=== PATIENT | male | born 1960 ===

== ENCOUNTER 2019-10-06 07:00 | Inpatient (IN) | payer OTHER ==
[~2019-10-06] VITALS: Ht 172.7 cm; Wt 85.7 kg
[2019-10-07] VITALS (14 sets, daily range): BP systolic 108–134; BP diastolic 62–80
[2019-10-07] MEDS ORDERED: ceFAZolin sod 2 GM in D5W 110 ML IVPB ONE (07:00)
--- NOTE | 2019-10-07 07:10 | NUR ---
IV STARTED BY ANITA ABRAMSOPS RN. NO S/S OF INFILTRATION.
[2019-10-07] MEDS ORDERED: AMLODIPINE BESYL5 MG ORAL (07:16)
[2019-10-07] MEDS ORDERED: LISINOPRIL20 MG ORAL (07:16)
--- NOTE | 2019-10-07 07:34 | Pre-Procedure Note/Attestation ---
Pre-Procedure Note/Attestation Complete Prior to Procedure Planned Procedure: not applicable Procedure Narrative: Bilateral Lumbar 45 and Lumbar 5S1 hemilaminotomy foraminotomy decompression and microdiscectomy Indications for Procedure Pre-Operative Diagnosis: L45 and L5S1 herniation Attestation I attest that I discussed the nature of the procedure; its benefits; risks and complications; and alternatives (and the risks and benefits of such alternatives ), prior to the procedure, with the patient (or the patient's legal retail service representative). I attest that, if there was a reasonable possibility of needing a blood transfusion, the patient (or the patient's legal retail service representative) was given the [place] [employer] standardized written summary, pursuant to the [place] Blood Safety Act ([place] Health and Safety Code # 1645, as amended). I attest that I re-evaluated the patient just prior to the surgery and that there has been no change in the patient's H&P, except as documented below: Tee Peterson MD Oct 07, 2019 07:34
--- NOTE | 2019-10-07 07:35 | Brief Operative Note ---
Immediate Post Operative Note Operative Note Chief Complaint: back pain and radiculopathy Pre-op Diagnosis: L45 and L5S1 herniation Procedure: Bilateral Lumbar 45 and Lumbar 5S1 hemilaminotomy foraminotomy decompression and microdiscectomy Post-op Diagnosis: same as pre-op Findings: consistent w/pre-op dx studies Surgeon: Kristen Plastic Jig And Fixture Builder: Deena Anesthesiologist: Sirisha Anesthesia: general Specimen: none Complications: none Condition: stable Fluids: IVF Estimated Blood Loss: minimal Drains: none Implant(s) used?: No Tee Peterson MD Oct 07, 2019 07:34
[2019-10-07] MEDS ORDERED: HYDROcodone/Acetamin 7.5/325 tab ORAL PRN ×3 (07:45→09:45)
[2019-10-07] MEDS ORDERED: Chloraseptic Spray 20mL Bottle ORAL PRN (07:45)
[2019-10-07] MEDS ORDERED: Metoclopramide 10mg/2ml Inj IVP PRN ×2 (07:45→09:45)
[2019-10-07] MEDS ORDERED: Milk of Magnesia 30ml Ud ORAL PRN (07:45)
[2019-10-07] MEDS ORDERED: HYDROmorphone 1mg/ml Carpuject IVP PRN (07:45)
[2019-10-07] MEDS ORDERED: Naloxone 0.4mg/ml Inj IVP PRN (07:45)
[2019-10-07] MEDS ORDERED: Morphine Sulfate 4mg/ml Inj (IV USE ONLY) IV PRN (07:45)
[2019-10-07] MEDS ORDERED: Morphine Sulfate 2mg/ml Inj(IV/IM USE ONLY) IV PRN (07:45)
[2019-10-07] MEDS ORDERED: HYDROcodone/Acetamin 5/325 tab ORAL PRN ×2 (07:45→09:45)
[2019-10-07] MEDS ORDERED: Bacitracin 50000 Units Vial ONE (09:35)
[2019-10-07] MEDS ORDERED: Ropivacaine 5mg/ml Vial 30ml INJ ONE ×2 (09:35→12:01)
[2019-10-07] MEDS ORDERED: Thrombin 5000 units TOPIC ONE (09:35)
[2019-10-07] MEDS ORDERED: Gelfoam Size TOPIC ONE (09:35)
[2019-10-07] MEDS ORDERED: Hydromorphone 0.5mg/0.5ml inj IVP PRN (09:45)
[2019-10-07] MEDS ORDERED: Meperidine 50mg/ml Inj(FOR RIGORS ONLY) IVP PRN (09:45)
[2019-10-07] MEDS ORDERED: oxyCODONE HCL/Acetaminophen 5/325mg ORAL PRN (09:45)
[2019-10-07] MEDS ORDERED: fentaNYL 100 mcg/2 mL IV PRN (09:45)
[2019-10-07] MEDS ORDERED: Ketorolac 30mg Inj IV PRN ×2 (09:45)
[2019-10-07] MEDS ORDERED: LR 1000ml 1,000 ML IVLG SCH (09:45)
[2019-10-07] MEDS ORDERED: Midazolam 2mg/2ml Inj IVP PRN (09:45)
[2019-10-07] MEDS ORDERED: LORazepam Inj 2mg/ml 1ml IV PRN (09:45)
[2019-10-07] MEDS ORDERED: DiphenhydrAMINE 50mg/ml Inj IVP PRN (09:45)
[2019-10-07] MEDS ORDERED: Acetaminophen (Non formulary) 100 ML IV ONE (09:45)
[2019-10-07] MEDS ORDERED: Atropine Sulfate 0.4mg/ml inj IVP PRN (09:45)
[2019-10-07] MEDS ORDERED: Labetalol 5mg/ml 20ml vial IV PRN (09:45)
--- NOTE | 2019-10-07 09:47 | Anethesia Preoperative Eval ---
Anesthesia Pre-op PMH/ROS General Date of Evaluation: Oct 07, 2019 Time of Evaluation: 09:46 Anesthesiologist: Sirisha ASA Score: ASA 3 Mallampati Score Class I : Soft palate, uvula, fauces, pillars visible Class II: Soft palate, uvula, fauces visible Class III: Soft palate, base of uvula visible Class IV: Only hard plate visible Mallampati Classification: Class II Surgeon: Kristen Diagnosis: Back Pain Surgical Procedure: L4-5,L5-S1 Microdiscectomy, Hemilaminotomy Anesthesia History: none Family History: no anesthesia problems Allergies: Coded Allergies: No Known Allergies (Unverified , 10/04/19) Medications: see eMAR Patient NPO?: Yes NPO Date: Oct 06, 2019 NPO Time: 2100 Past Medical History Cardiovascular: Reports: HTN, other - HL Other: obesity - BMI 31 Anesthesia Pre-op Phys. Exam Physician Exam Last Vital Signs Date Time Temp Pulse Resp B/P (MAP) Pulse Ox O2 Delivery O2 Flow Rate FiO2 10/07/19 07:17 97.0 60 20 134/80 (98) 100 10/07/19 07:07 Room Air Constitutional: NAD Neurologic: CN 2-12 intact Cardiovascular: RRR Respiratory: CTA Gastrointestinal: S/NT/ND Airway Exam Mallampati Score: Class II MO: full ROM: full Teeth: missing Dentures: upper, lower Anesthesia Pre-op A/P Risk Assessment & Plan Assessment: ASA 3 Plan: GA, SED, GlideScope Go Status Change Before Surgery: No Pre-Antibiotics Dru Grams Ancef IV Given Within 1 Hr of Incision: Yes Time Given: 10:11 Alfa Grimm MD Oct 07, 2019 09:47
[2019-10-07] MEDS ORDERED: Lidocaine 1% MPF 10mg/ml 5ml ONE (09:49)
[2019-10-07] MEDS ORDERED: Lidocaine 1% Plain 30 ml INJ ONE (09:49)
[2019-10-07] MEDS ORDERED: fentaNYL 100 mcg/2 mL IV ONE (09:50)
[2019-10-07] MEDS ORDERED: Vancomycin 1gm vial IVPB ONE ×2 (09:57→11:53)
[2019-10-07] MEDS ORDERED: NS Irrig 1000ml ONE (10:00)
[2019-10-07] MEDS ORDERED: Propofol 1,000mg/ 100ml btl IV ONE (10:00)
[2019-10-07] MEDS ORDERED: Sterile Water Irrig 1000ml IRRIG ONE (10:00)
[2019-10-07] MEDS ORDERED: Rocuronium Bromide 50mg/5ml Inj IV ONE (10:00)
--- NOTE | 2019-10-07 10:12 | NUR ---
CASE MANAGEMENT:REVIEW 59 YR OLD MALE HERE FOR ELECTIVE SURGERY SI: BACK PAIN AND RADICULOPATHY 97.0 60 20 134/80 100% ON RA IS: TO SURGERY: BILATERAL LUMBAR HEMILAMINOTOMY...... : CURRENTLY IN SURGERY INTERQUAL CRITERIA MET
--- NOTE | 2019-10-07 10:55 | Immediate Post-Op Evaluation ---
Immediate Post-Op Evalulation Immediate Post-Op Evalulation Procedure: L4-5,L5-S1 Microdiscectomy, Hemilaminotomy Date of Evaluation: Oct 07, 2019 Time of Evaluation: 12:49 IV Fluids: 1000 LR Blood Products: 0 Estimated Blood Loss: 75 Urinary Output: 200 Blood Pressure Systolic: 121 Blood Pressure Diastolic: 70 Pulse Rate: 67 Respiratory Rate: 18 O2 Sat by Pulse Oximetry: 100 Temperature (Fahrenheit): 98.4 Pain Score (1-10): 2 Nausea: No Vomiting: No Complications 0 Patient Status: awake, reacts, patent, extubated, none Hydration Status: adequate Dru Grams Acef IV Given Within 1 Hr of Incision: Yes Time Given: 10:11 Alfa Grimm MD Oct 07, 2019 10:55
[2019-10-07] MEDS ORDERED: Neostigmine 1mg/ml 10ml Inj ONE (11:33)
[2019-10-07] MEDS ORDERED: Glycopyrrolate 0.2mg/ml 1ml Vial ONE (11:33)
[2019-10-07] MEDS ORDERED: ePHEDrine 50mg/ml Inj ONE (12:22)
--- NOTE | 2019-10-07 15:46 | Diagnostic Imaging Report ---
INDICATION: Pain, intraoperative TECHNIQUE: Intraoperative imaging Fluoroscopy time: 4.9 seconds Total dose: 0.40497 mGym2 Total number of images: 6 one COMPARISON: None FINDINGS: Single intraoperative image demonstrates a surgical tool projected at the level of what is presumably the posterior L5-S1 disc IMPRESSION: Intraoperative imaging, as described
--- NOTE | 2019-10-07 15:46 | Diagnostic Imaging Report ---
INDICATION: Pain, intraoperative TECHNIQUE: Intraoperative imaging Fluoroscopy time: 4.9 seconds Total dose: 0.63996 mGym2 Total number of images: 6 one COMPARISON: None FINDINGS: Single intraoperative image demonstrates a surgical tool projected at the level of what is presumably the posterior L5-S1 disc IMPRESSION: Intraoperative imaging, as described
--- NOTE | 2019-10-07 17:00 | NUR ---
NURSE NOTES: Received report from Chente WU. pt a/a/o x4 laying in bed with no signs of distress or other issues at this time. surgical dressing dry and intact. ice pack in place. Naylor draining to gravity. IV on the left hand gauge#20. SCDS in place. call light within reach, bed in lowest position. side rales up x2. family at bedside. RN will review orders and will carry them as indicated. will f/u as needed.
[2019-10-07] MEDS: NS w/KCl 20mEq 1000ml 1,000 ML IV SCH (17:11)
[2019-10-07] MEDS: Dexamethasone 4mg/ml vial IVP SCH (17:11)
[2019-10-07] MEDS: ceFAZolin sod 1 GM in D5W 55 ML IV SCH (17:11)
[2019-10-07] MEDS: Docusate 100mg cap ORAL SCH (17:12)
--- NOTE | 2019-10-07 17:18 | General Progress Note ---
Assessment/Plan Assessment/Plan: L45 and L5S1 herniation Bilateral Lumbar 45 and Lumbar 5S1 hemilaminotomy foraminotomy decompression and microdiscectomy lumbar disc disease PLAN 1. incentive spirometry 2. SCD 3. PT evaluation and therapy 4. Hydration 5. Pain management 6. discharge once stable with outpatient follow up Subjective Allergies: Coded Allergies: No Known Allergies (Unverified , 10/04/19) Subjective asked to follow up post op Objective Last 24 Hour Vital Signs Date Time Temp Pulse Resp B/P (MAP) Pulse Ox O2 Delivery O2 Flow Rate FiO2 10/07/19 16:00 98.4 87 18 120/67 (84) 98 10/07/19 14:45 97.5 82 15 125/76 100 Nasal Cannula 3 10/07/19 14:45 97.5 85 18 118/71 (87) 97 10/07/19 14:45 83 14 122/72 100 Nasal Cannula 3 10/07/19 14:30 77 16 120/73 100 Nasal Cannula 3 10/07/19 14:15 82 15 120/75 100 Nasal Cannula 3 10/07/19 14:00 80 18 133/75 100 Nasal Cannula 3 10/07/19 13:45 85 16 132/79 100 Nasal Cannula 3 10/07/19 13:30 81 17 128/79 100 Nasal Cannula 3 10/07/19 13:15 66 17 119/72 100 Simple Mask 6 10/07/19 13:00 62 15 122/62 100 Simple Mask 6 10/07/19 12:50 65 16 113/65 100 Simple Mask 6 10/07/19 12:45 63 14 115/64 100 Simple Mask 6 10/07/19 12:37 67 18 100 10/07/19 12:35 98.4 67 16 121/78 100 Simple Mask 6 10/07/19 07:17 97.0 60 20 134/80 (98) 100 10/07/19 07:07 Room Air Height (Feet): 5 Height (Inches): 8.00 Weight (Pounds): 189 Objective WDWN NAD clear breath sounds bilaterally without rhonchi or wheeze [id number] without MRG NABS nontender no HSM no CCE nonfocal Al Lyons MD Oct 07, 2019 17:18
--- NOTE | 2019-10-07 19:30 | NUR ---
NURSE NOTES: Receive a report from BRYCE Xiao. Rounding is done. Pt is awake and alert. Breathing is even and non labored. No acute distress noted. Op site is dry and intact without bleeding signs. Reapply ice bag. Pt says that pain is getting elevated. Will provide pain medication as ordered. Yellowish urine is patent via molina catheter without sediments or hematuria. IV is running on right hand without infiltration. Provide care of plans. Call light within reach. Will continue to monitor.
--- NOTE | 2019-10-07 19:38 | NUR ---
HAND-OFF: Report given to Vernon RN, pt in stable condition.
[2019-10-07] MEDS: Morphine Sulfate 4mg/ml Inj (IV USE ONLY) IV PRN (20:13)
--- NOTE | 2019-10-07 21:30 | NUR ---
NURSE NOTES: Pain relieved after prn pain medication. No s/e noted. Encourage I/S every hour while awake. Will continue to monitor.
[2019-10-08] VITALS: BP 107/67
[2019-10-08] MEDS: Dexamethasone 4mg/ml vial IVP SCH ×3 (00:15→11:25)
[2019-10-08] MEDS: ceFAZolin sod 1 GM in D5W 55 ML IV SCH ×2 (02:17→09:40)
[2019-10-08] MEDS: NS w/KCl 20mEq 1000ml 1,000 ML IV SCH (02:17)
--- NOTE | 2019-10-08 02:45 | Operative Note - Dictated ---
DATE OF OPERATION: 10/07/2019 SURGEON: Tee Peterson M.D., Orthopaedic Spine Surgeon. WAXER OPERATOR SURGEON: PASTORA Benz. ANESTHESIA: General endotracheal anesthesia. PREOPERATIVE DIAGNOSES: 1. Intractable back pain. 2. Intractable leg pain. 3. Worsening radiculopathy. 4. Weakness. 5. Herniated nucleus pulposus, L4-L5 and L5-S1 herniation. 6. Neural foraminal stenosis, L4-L5 and L5-S1. POSTOPERATIVE DIAGNOSES: 1. Intractable back pain. 2. Intractable leg pain. 3. Worsening radiculopathy. 4. Weakness. 5. Herniated nucleus pulposus, L4-L5 and L5-S1 herniation. 6. Neural foraminal stenosis, L4-L5 and L5-S1. PROCEDURES PERFORMED: 1. Bilateral-sided L4-L5 and L5-S1 microdiscectomy. 2. L4-L5 and L5-S1 hemilaminotomy, foraminotomy and medial facetectomy. 3. L4-L5 and L5-S1 neural foraminotomy through a transpedicular intraforaminal approach. 4. Use of intraoperative microscope. 5. Supervision and interpretation of intraoperative fluoroscopy. 6. Supervision and interpretation of somatosensory-evoked potential and free running EMG monitoring. EBL: Less than 100 mL. COMPLICATIONS: None. INDICATIONS FOR THE PROCEDURE: James presents for intractable back pain and radiculopathy. The patient tried and failed a prolonged course of conservative management, including but not limited to chiropractic therapy, physical therapy, nonsteroidal anti-inflammatory drugs, medication, ice packs as well as epidural injection. Despite these therapies, the patient still developed recalcitrant pain and elected for definitive management in the form of bilateral-sided L4-L5 and L5-S1 microdiscectomy, L4-L5 and L5-S1 hemilaminotomy, foraminotomy and medial facetectomy, L4-L5 and L5-S1 neural foraminotomy through a transpedicular intraforaminal approach. We had a long discussion with him regarding definitive surgical treatment options. The patient's MRI demonstrated herniated nucleus pulposus, L4-L5 and L5-S1 herniation, neural foraminal stenosis, L4-L5 and L5-S1 and as a result, I felt he would benefit from the discectomy as well as neural foraminotomy at this level. We had a long discussion with the patient regarding the risks, alternatives, and benefits of surgery. Our description of the risks included a discussion in person as well as a signed consent which detailed all pertinent risks and the procedure itself. Briefly, our discussion included but was not limited to infection, bleeding, pseudarthrosis, spinal cord injury, neurovascular injury, dural tear, CSF leak, neuropathy, paralysis, permanent weakness/drop foot, paresthesias blindness, palsy and weakness. The patient understood there may be a need for revision surgery or additional procedures. Approach related complications including dysphonia, dysphagia, blindness, permanent vocal cord and neural injury, hematoma, swallowing and breathing difficulty. Medical complications including liver, kidney, shock, and cardiopulmonary failure. Anesthesia complications including , swelling. Damage to the musculature, larynx (voice injury or loss),esophagus (throat), trachea, blood vessels and muscles (muscular sprain) and lungs (pneumothorax) during this surgical procedure. Injury to deeper structures may be temporary or permanent. The patient understood these and elected to proceed. A written and verbal consent was given. We discussed the pros and cons of all the alternatives. We discussed the uncertainties associated with the decision. Afterwards I assessed the patients understanding and explored their preferences. All questions were answered and no guarantees were given. Medical clearance was obtained prior to surgery. INTRAOPERATIVE FINDINGS: At L4-L5, there was significant component of stenosis due to ligamentum flavum hypertrophy, facet joint hypertrophy, and neural foraminal stenosis. The neural foraminal stenosis is secondary to a combination of facet joint hypertrophy and with disc herniation with evidence of encroachment of the neural foramina from the ventral direction due to the herniation and from the dorsal direction as a result of lateral recess and facet joint hypertrophy. At L4-L5 within the neural foramina itself, I visualized evidence of the tear on the left side, which demonstrated the foraminal fragments at L4-L5, this was carefully mobilized and nerve root retractor disc fragments was completely and thoroughly resected without any complication. At L5-S1, there was a significant component of lateral recess stenosis due to secondary to neural foraminal stenosis secondary to a herniated fragment with encroachment into the lateral recess neural foramina at L5-S1, posterior thecal sac was mobilized allowing for direct observation of neural foramina at L5-S1 where I encountered a tear of the posterior longitudinal ligament at L5-S1 with a left-sided disc herniation encroaching on , this was carefully mobilized with a nerve root retractor posterior limb of of disc herniation, which I was able to carefully resect as a combination of arthroscopic and pituitary until were freely mobile. DESCRIPTION OF PROCEDURE: Under the benefit of general endotracheal anesthesia and with the assistance of the entire operative team, the patient was moved from the [facility] onto the operative table in the prone position on a [place] frame. The head was secured and positioned appropriately. Bilateral arms were secured with Gel pads and foam and all bony prominences were padded. The bilateral lower extremity SCD and WINTER hose were placed for DVT prophylaxis. A surgical timeout was called which corroborated our planned procedure. Preoperative Antibiotics were administered within 30 minutes of the incision for prophylaxis. Decadron was given for preoperative steroids. Using lateral radiography, the operative levels were delineated. An incision was marked based on our interpretation of lateral radiography and afterwards the body was prepped and draped in the usual sterile manner. The family was notified that we were ready to commence surgery and were called in the waiting room hourly for updates. An incision was based on our lateral fluoroscopic image to center the incision at the L5-S1 interspace. The wound was prepped and draped in the usual sterile fashion. Using a scalpel a midline incision was taken down through the skin and subcutaneous tissues until the overlying hemilamina of L4-L5 and L5-S1 were visualized. Next, using meticulous hemostasis, hemilamotomies were dissected and retractors were placed. Using a [place] dental we confirmed placement at the L4-L5 and L5-S1 interspace. We next turned our attention to our decompression. A standard hemilaminotomy foraminotomy medial facetectomy was performed at each level in standard fashion using a Midas-Ad type AM8 drill bit, straight and angled curettage, and [place] 4 rongeurs until the lateral thecal sac margin and traversing nerve root was visualized. All remainders of the ligamentum flavum and lateral bony margins were resected in total with angled curettage and [place] 4 rongeurs until the lateral thecal sac margin and traversing nerve root was visualized and decompressed. We next turned our attention toward our L4-L5 and L5-S1 microdiscectomy on the bilateral side. A [place] 4 was used to gently mobilize the thecal sac medially and this was held retracted with a bayonetted nerve root retractor. It was at this point that we noted a large broad-based disc protrusion with encroachment dorsally on the thecal sac neural foraminal contents. A bayonet and nerve root retractor was then placed carefully to retract the thecal sac and a discectomy was performed using a combination of a long handled 15 blade scalpel, downgoing and straight pituitaries and downgoing curettage. Afterward the disc space was irrigated twice with 20 mL of antibiotic-impregnated saline. All loose and free-floating disc fragments were carefully resected with a narrow pituitary. Having been satisfied with our decompression after our discectomy of all neural elements we next turned our attention to our neural foraminoplasty/foraminotomy. This was performed through a transpedicular intraforaminal approach using an access probe followed by a neuro check device, which confirmed ventral placement of our nerve root. Once we confirmed we were safe we next turned our attention towards placement of our size 10 file under direct microscopic visualization and under lateral fluoroscopy. Using pre and post reciprocation imaging we were able to visualize our direct decompression given the reciprocation allowed for re-creation of the neural foraminal arch at L4-L5 and L5-S1. Afterwards hemostasis was obtained with 60 mL of antibiotic-impregnated saline followed by FloSeal and Gelfoam. After sponge and needle count were found to be correct, next we turned our attention to closure. Closure consisted of 1-0 Vicryl in standard interrupted fashion. Zosyn was placed deep to the fascia and superficial to the fascia for Antibiotic prophylaxis. Skin closure was performed with 2-0 Vicryl in interrupted fashion followed by a running Monocryl for the skin. Final dressings consisted of Dermabond for the superficial skin, Telfa and Tegaderm. The patient tolerated the procedure well. The patient was extubated after the conclusion of surgery without incident. We discussed the findings of the surgery with the family upon completion of the case. At this point the patient will be transferred to the spine floor for further observation. Tee Peterson M.D. DR: VIET JOB#: [id number] CC:
[2019-10-08 04:30] VITALS: BP 124/72
[2019-10-08] MEDS: Morphine Sulfate 4mg/ml Inj (IV USE ONLY) IV PRN (05:30)
--- NOTE | 2019-10-08 06:00 | NUR ---
NURSE NOTES: Pt is awake and alert. No acute distress noted. After 2nd time of taking morphine 4mg IVS, level of pain decreased. Done Zofran 4mg IVS for nausea. No vomiting noted. Will continue to monitor.
--- NOTE | 2019-10-08 07:30 | NUR ---
HAND-OFF: Report given to BRYCE Elder. Round is done.
--- NOTE | 2019-10-08 07:30 | NUR ---
NURSE NOTES: Pt lying in bed w/bed in lowest position and call light within reach. Pt A&Ox4, VSS, and in no apparent distress. IV site intact/asymptomatic w/IVF infusing; F/C patent/draining well; and surgical site C/D/I. Will continue to monitor.
[2019-10-08 08:00] VITALS: BP 119/69
[2019-10-08 08:06] VITALS: BP 100/59
[2019-10-08] MEDS: Docusate 100mg cap ORAL SCH (09:40)
--- NOTE | 2019-10-08 09:40 | General Progress Note ---
Assessment/Plan Assessment/Plan: L45 and L5S1 herniation Bilateral Lumbar 45 and Lumbar 5S1 hemilaminotomy foraminotomy decompression and microdiscectomy lumbar disc disease PLAN 1. incentive spirometry 2. SCD 3. PT evaluation and therapy 4. Hydration 5. Pain management 6. discharge home pending clearance impression, plan, and exam edited and reviewed in detail care discussed with RN Subjective Allergies: Coded Allergies: No Known Allergies (Unverified , 10/04/19) Subjective stable post op Objective Last 24 Hour Vital Signs Date Time Temp Pulse Resp B/P (MAP) Pulse Ox O2 Delivery O2 Flow Rate FiO2 10/08/19 08:06 98.6 76 18 100/59 (73) 95 10/08/19 08:00 97.6 83 18 119/69 (86) 99 10/08/19 04:30 98.4 80 18 124/72 (89) 97 10/08/19 00:00 98.2 82 18 107/67 (80) 97 10/07/19 21:00 Room Air 10/07/19 20:00 98.9 95 17 108/64 (79) 98 10/07/19 16:00 98.4 87 18 120/67 (84) 98 10/07/19 14:45 97.5 82 15 125/76 100 Nasal Cannula 3 10/07/19 14:45 97.5 85 18 118/71 (87) 97 10/07/19 14:45 83 14 122/72 100 Nasal Cannula 3 10/07/19 14:30 77 16 120/73 100 Nasal Cannula 3 10/07/19 14:15 82 15 120/75 100 Nasal Cannula 3 10/07/19 14:00 80 18 133/75 100 Nasal Cannula 3 10/07/19 13:45 85 16 132/79 100 Nasal Cannula 3 10/07/19 13:30 81 17 128/79 100 Nasal Cannula 3 10/07/19 13:15 66 17 119/72 100 Simple Mask 6 10/07/19 13:00 62 15 122/62 100 Simple Mask 6 10/07/19 12:50 65 16 113/65 100 Simple Mask 6 10/07/19 12:45 63 14 115/64 100 Simple Mask 6 10/07/19 12:37 67 18 100 10/07/19 12:35 98.4 67 16 121/78 100 Simple Mask 6 Intake and Output 10/07/19 10/08/19 19:00 07:00 Intake Total 550 ml 1400 ml Output Total 1900 ml 1400 ml Balance -1350 ml 0 ml Intake Oral 300 ml 200 ml IV Total 250 ml 1200 ml Output Urine Total 1900 ml 1400 ml # Voids 1 Height (Feet): 5 Height (Inches): 8.00 Weight (Pounds): 189 Objective WDWN NAD clear breath sounds bilaterally without rhonchi or wheeze [id number] without MRG NABS nontender no HSM no CCE nonfocal Al Lyons MD Oct 08, 2019 09:40
--- NOTE | 2019-10-08 09:50 | 48 Hour Post Anesthesia Eval ---
Post Anesthesia Evaluation Procedure: L4-5,L5-S1 Microdiscectomy, Hemilaminotomy Date of Evaluation: Oct 08, 2019 Time of Evaluation: 09:49 Blood Pressure Systolic: 118 0: 72 Pulse Rate: 68 Respiratory Rate: 16 Temperature (Fahrenheit): 97.6 O2 Sat by Pulse Oximetry: 98 Airway: patent Nausea: No Vomiting: No Pain Intensity: 3 Hydration Status: adequate Cardiopulmonary Status: stable Mental Status/LOC: patient returned to baseline Follow-up Care/Observations: n/a Post-Anesthesia Complications: none Follow-up care needed: ready to discharge Yordy Bowers MD Oct 08, 2019 09:50
--- NOTE | 2019-10-08 10:15 | NUR ---
NURSE NOTES: Removed F/C w/o incident; instructed pt to notify me once he voids on his own; pt verbalized understanding. Will continue to monitor.
[2019-10-08 12:00] VITALS: BP 104/62
--- NOTE | 2019-10-08 12:45 | NUR ---
NURSE NOTES: Pt voided 425 ml of yellow urine into urine w/o incident. Pt feels comfortable going home today. Will continue to monitor.
[2019-10-08] MEDS ORDERED: NORCO 10-325 T1 EACH ORAL ×3 (13:58→14:03)
--- NOTE | 2019-10-08 14:40 | NUR ---
NURSE NOTES: Pt D/C'd home w/all belongings accounted for and D/C summary and pain med Rx provided. Pt escorted via w/b by PUBLIC HEALTH EPIDEMIOLOGIST to pt's daughter's vehicle; removed IV H/L and ID wristband before D/C. All questions and concerns addressed before D/C. Instructed pt to follow up with Dr. Peterson outpatient.
--- NOTE | 2019-10-08 15:07 | NUR ---
PT Note PT aurelio completed, treatment initiated. Patient has muscle weakness and pain in his surgical site. with difficulty in mobility and gait. Patient is also untrained in proper body mechanics and log rolling techniques. Patient needs PT to increase his muscle strength and to educate on proper body mechanics and proper log rolling techniques for safe functional mobility and gait to enable him to return home. Addendum: 10/08/19 at 1508 by VIOLA MEJIA PT Amended: Links added.
--- NOTE | 2019-10-10 08:21 | Discharge Summary ---
Discharge Summary Hospital Course Date of Admission Oct 07, 2019 at 06:21 Date of Discharge Oct 08, 2019 at 15:01 Admitting Diagnosis L4-5 and L5-S1 herniation Reason for Hospitalization: elective surgery HPI James Tubbs is a 59 year old male who was admitted on Oct 07, 2019 at 06:21 for Herniated Nucleus Pulposus,Pain,Radiculopathy/ L4-5 and L5-S1 herniation Patient was admitted for elective surgery Procedures s/p 10/07/[address] Peterson 1. Bilateral-sided L4-L5 and L5-S1 microdiscectomy. 2. L4-L5 and L5-S1 hemilaminotomy, foraminotomy and medial facetectomy. 3. L4-L5 and L5-S1 neural foraminotomy through a transpedicular intraforaminal approach. 4. Use of intraoperative microscope. 5. Supervision and interpretation of intraoperative fluoroscopy. 6. Supervision and interpretation of somatosensory-evoked potential and free running EMG monitoring. Hospital Course status post surgery course of recovery uneventful initially IV fluids s/p perioperative antibiotics neurovascular status closely monitored, remained stable incision with dressing clean, dry and intact pain management was addressed; pain was controlled patient remained hemodynamically stable ambulated with PT fall precautions maintained; safe for ambulation DVT prophylaxis provided use of incentive spirometry was encouraged while in the bed tolerated diet , IV fluids discontinued Chloraseptic spray and Cepacol lozenges were on board as needed antiemetics were on board as needed blood pressure was closely monitored, remained stable voided freely bowel regimen instituted patient was stable for discharge discharge instructions provided follow up with surgeon in the office as outpatient as advised by surgeon FINAL DIAGNOSES 1. Intractable back pain. 2. Intractable leg pain. 3. Worsening radiculopathy. 4. Weakness. 5. Herniated nucleus pulposus, L4-L5 and L5-S1 herniation. 6. Neural foraminal stenosis, L4-L5 and L5-S1 7. s/p bilateral lumbar L4-5 and Lumbar L5-S1 hemilaminotomy, foraminotomy, decompression and microdiscectomy Discharge Medications Continued Medications: Amlodipine Besylate* (Amlodipine Besylate*) 5 Mg Tablet 5 MG ORAL DAILY, TAB (This prescription has been renewed) Lisinopril (Lisinopril*) 20 Mg Tablet 20 MG ORAL DAILY, TAB (This prescription has been renewed) Discharge Condition Upon Discharge: stable Discharge Disposition Patient was discharged to Home (01) Discharge Instructions Discharge Instructions Special Instructions I have been assigned to complete a D/C Summary on this account. I was not involved in the patient management For Congestive Heart Failure Reminder I have been assigned to complete a D/C Summary on this account. I was not involved in the patient management Jessica Morton NP Oct 10, 2019 08:21
== END 2019-10-08 15:01 | disposition home or self-care (01) | DRG 520 ==
LOC: SDSOVERFLO 10-07 06:21 → EDBD 10-07 09:30 → 3E 10-07 14:45
PROC: 0ST40ZZ Resection of Lumbosacral Disc, Open Approach (ICD-10-PCS; principal; 2019-10-07 09:30)
PROC: 0ST20ZZ Resection of Lumbar Vertebral Disc, Open Approach (ICD-10-PCS; principal; 2019-10-07 09:30)
DX: M51.16 Intervertebral disc disorders with radiculopathy, lumbar region (principal); M51.17 Intervertebral disc disorders with radiculopathy, lumbosacral region
CPT/HCPCS: 36415; 72020; 76000; 86850; 86900; 86901; 87081; 94003; 94150; J2405; J2710